=== PATIENT | male | born 1990 | race Two or more races ===

== ENCOUNTER 2020-09-09 21:13 | Emergency (ER) | payer OTHER ==
[~2020-09-09] VITALS: Ht 190.5 cm; Wt 109.0 kg
[2020-09-09 21:15] VITALS: BP 142/88
--- NOTE | 2020-09-09 21:51 | NUR ---
PT PRESENTS TO ER WITH AT BEDSIDE, PT STATES HE HAD A SURGERY 5 WEEKS AGO ON HIS RIGHT HIP FOR SI JOINT FUSION, PT STATES THAT THE INCISION HAS HEALED WELL BUT HE HAS AN OPENING ON THE LOWER END OF HIS WOUND, PT STATES HE WANTS TO GET IT LOOKED AT TO MAKE SURE ITS NOT INFECTED OR IF IT NEEDS SUTURES OR ANYYTHING, AT BEDSIDE TO DISCUSS POC
[2020-09-09] MEDS ORDERED: LIDOCAINE-MPF 1%, 5ML INFIL ONE (22:00)
[2020-09-09] MEDS ORDERED: LIDOCAINE-MPF 1%, 5ML ONE (22:05)
[2020-09-09] MEDS ORDERED: BACITRACIN ZINC OINT 500U/GM, 0.9 GM ONE (22:19)
[2020-09-09] MEDS ORDERED: NEOSPORIN OINT. PKT 1 PACKET ONE (22:21)
--- NOTE | 2020-09-09 23:08 | NUR ---
Discharge instructions given. All questions and concerns addressed. Patient ambulatory with a steady gait. Belongings with patient.
== END 2020-09-09 23:10 | disposition home or self-care (01) ==
LOC: ED 21:45
DX: T81.30XA Disruption of wound, unspecified, initial encounter (principal); X58.XXXA Exposure to other specified factors, initial encounter; Y93.89 Activity, other specified; Y92.89 Other specified places as the place of occurrence of the external cause; Y99.8 Other external cause status; Y82.9 Unspecified medical devices associated with adverse incidents
CPT/HCPCS: 12031; 99284